=== PATIENT | female | born 1970 | race Caucasian/White ===

== ENCOUNTER 2022-08-11 14:25 | Emergency (ER) | payer OTHER ==
[2022-08-11 14:44] VITALS: TEMP 97.6; BMI 37.8
[2022-08-11] MEDS ORDERED: SODIUM CHLORIDE 1,000 ML IV STA (15:42)
[2022-08-11] MEDS ORDERED: ACETAMINOPHEN 1000 MG/100 ML BAG IVPB ONE (15:43)
[2022-08-11 16:03] LABS: EPI CELLS 31 /uL (0-25.1); HYALINE CASTS 0 /uL (0-3.1); PH,URINE 5.5 (5.0-8.0); URINE APPEARANCE CLEAR; URINE BACTERIA 117 /uL (0-1359); URINE BILIRUBIN NEGATIVE (NEGATIVE); URINE COLOR YELLOW; URINE GLUCOSE (UA) NEGATIVE (NEGATIVE); URINE KETONE NEGATIVE (NEGATIVE); URINE LEUK ESTERASE 1+ (NEGATIVE); URINE NITRITE NEGATIVE (NEGATIVE); URINE PROTEIN NEGATIVE (NEGATIVE); URINE RBC 10 /uL (0-23.9); URINE UROBILINOGEN 0.2 mg/dL (0.2-1.0); URINE WBC 23 /uL (0-25.8)
[2022-08-11] MEDS ORDERED: ACETAMINOPHEN INJECTION 100 ML IVPB ONE (16:03)
[2022-08-11 16:05] LABS: HCG,QUALITATIVE URINE Negative
[2022-08-11 16:08] LABS: BASO % 0.8 % (0-2.0); EOS % 1.7 % (0-4.5); HEMOGLOBIN 13.7 GM/dL (10.7-15.3); LYMPH % 40.6 % (8-40); MCH 27.9 pg (25.7-33.7); MCHC 32.6 g/dl (32.0-36.0); MEAN CELL VOLUME 85.6 fl (80-96); MEAN PLT VOLUME 8.6 fl (7.5-11.1); NEUT % 50.9 % (42.8-82.8); PLATELET COUNT 237 10^3/uL (134-434); RBC 4.91 M/mm3 (3.60-5.2); RDW 14.6 % (11.6-15.6); WHITE BLOOD COUNT 8.4 K/mm3 (4.0-10.0)
[2022-08-11 16:30] LABS: ALBUMIN 3.7 g/dl (3.4-5.0); CALCIUM 9.4 mg/dL (8.5-10.1)
[2022-08-11 16:33] LABS: CREATININE 0.6 mg/dL (0.55-1.3)
[2022-08-11 16:35] LABS: BILIRUBIN,TOTAL 0.2 mg/dL (0.2-1)
[2022-08-11] MEDS ORDERED: oxyCODONE HCL 5 MG TABLET PO ONE ×2 (17:22→23:01)
[2022-08-11] MEDS ORDERED: oxyCODONE HCL 5 MG TABLET ONE ×2 (17:26→23:12)
[2022-08-11] MEDS ORDERED: KETOROLAC TROMETHAMINE 15 MG/ML VIAL IVPUSH ONE (19:47)
[2022-08-11] MEDS ORDERED: KETOROLAC TROMETHAMINE 15 MG/ML VIAL ONE (19:55)
[2022-08-11 20:06] VITALS: BP 129/87; PULSE 81; RESP 20
[2022-08-11] MEDS ORDERED: AMOX TR/POT CLAV 875MG/125MG TABLETS (FP) PO ONE (22:56)
[2022-08-11] MEDS ORDERED: AMOX TR/POT CLAV 875MG/125MG TABLETS (FP) ONE (23:11)
== END 2022-08-11 23:26 | disposition home or self-care (01) ==
LOC: JER 14:25
PROC: 3E0333Z Introduction of Anti-inflammatory into Peripheral Vein, Percutaneous Approach (ICD-10-PCS; principal; 2022-08-11)
PROC: 3E0333Z Introduction of Anti-inflammatory into Peripheral Vein, Percutaneous Approach (ICD-10-PCS; 2022-08-11)
PROC: 3E0337Z Introduction of Electrolytic and Water Balance Substance into Peripheral Vein, Percutaneous Approach (ICD-10-PCS; 2022-08-11)
DX: R10.2 Pelvic and perineal pain (principal); D25.9 Leiomyoma of uterus, unspecified
CPT/HCPCS: 36415; 74177-TC; 76830-TC; 80053; 81003; 83690; 84703; 85025; 87086; 99285-25; Q9967

== ENCOUNTER 2022-11-26 11:06 | Emergency (ER) | payer OTHER ==
[2022-11-26 11:28] VITALS: BP 133/83; PULSE 83; RESP 20; TEMP 98.2; BMI 39.0
[2022-11-26] MEDS ORDERED: KETOROLAC TROMETHAMINE 15 MG/ML VIAL IM ONE (11:56)
[2022-11-26] MEDS ORDERED: METHOCARBAMOL 500 MG TABLET PO ONE (11:56)
[2022-11-26] MEDS ORDERED: KETOROLAC TROMETHAMINE 15 MG/ML VIAL ONE (12:03)
[2022-11-26] MEDS ORDERED: METHOCARBAMOL 500 MG TABLET ONE (12:03)
== END 2022-11-26 15:25 | disposition home or self-care (01) ==
LOC: JER 11:06
PROC: 3E023GC Introduction of Other Therapeutic Substance into Muscle, Percutaneous Approach (ICD-10-PCS; principal; 2022-11-26)
DX: M54.31 Sciatica, right side (principal)
CPT/HCPCS: 72100-TC-FY; 73502-TC-RT-FY; 73562-TC-RT-FY; 73590-TC-RT-FY; 99284-25

== ENCOUNTER 2023-07-20 01:07 | Emergency (ER) | payer OTHER ==
[2023-07-20 01:23] VITALS: BP 157/89; PULSE 98; RESP 18; BMI 43.9
[2023-07-20] MEDS ORDERED: ACETAMINOPHEN 1000 MG/100 ML BAG IVPB ONE (01:38)
[2023-07-20] MEDS ORDERED: MAG HYDROX/AL HYDROX/SIMETH 30 ML UNIT-DOSE CUP PO ONE (01:38)
[2023-07-20] MEDS ORDERED: FAMOTIDINE 20 MG/50 ML IVPB 20 MG/50 ML MG IVPB ONE ×2 (01:38→02:20)
[2023-07-20] MEDS ORDERED: ACETAMINOPHEN INJECTION 100 ML IVPB ONE (02:19)
[2023-07-20 02:20] LABS: BASO % 0.5 % (0-2.0); EOS % 1.7 % (0-4.5); HEMATOCRIT 42.3 % (32.4-45.2); HEMOGLOBIN 13.7 GM/dL (10.7-15.3); LYMPH % 41.7 % (8-40); MCH 27.5 pg (25.7-33.7); MCHC 32.3 g/dl (32.0-36.0); MEAN CELL VOLUME 85.2 fl (80-96); MEAN PLT VOLUME 8.9 fl (7.5-11.1); MONO % 6.5 % (3.8-10.2); NEUT % 49.6 % (42.8-82.8); PLATELET COUNT 300 10^3/uL (134-434); RBC 4.96 M/mm3 (3.60-5.2); WHITE BLOOD COUNT 11.1 K/mm3 (4.0-10.0)
[2023-07-20] MEDS ORDERED: MAG HYDROX/AL HYDROX/SIMETH 30 ML UNIT-DOSE CUP ONE (02:20)
[2023-07-20 02:31] VITALS: TEMP 98.7
[2023-07-20 02:46] LABS: POTASSIUM 4.7 mmol/L (3.5-5.1)
[2023-07-20 02:47] LABS: ALBUMIN 3.7 g/dl (3.4-5.0); CALCIUM 8.8 mg/dL (8.5-10.1)
[2023-07-20 02:50] LABS: CREATININE 0.7 mg/dL (0.55-1.3)
[2023-07-20 02:52] LABS: BILIRUBIN,TOTAL 0.2 mg/dL (0.2-1); TOT PROT 7.3 g/dl (6.4-8.2)
== END 2023-07-20 04:05 | disposition home or self-care (01) ==
LOC: JER 01:07
PROC: 3E033GC Introduction of Other Therapeutic Substance into Peripheral Vein, Percutaneous Approach (ICD-10-PCS; principal; 2023-07-20)
PROC: 3E033GC Introduction of Other Therapeutic Substance into Peripheral Vein, Percutaneous Approach (ICD-10-PCS; 2023-07-20)
DX: R07.9 Chest pain, unspecified (principal); R06.02 Shortness of breath; Z20.822 Contact with and (suspected) exposure to COVID-19
CPT/HCPCS: 0241U-QW; 36415; 71045-TC-FY; 80053; 84484; 85025; 93005; 93010; 99285-25

== ENCOUNTER 2024-07-20 13:14 | Emergency (ER) | payer OTHER ==
[2024-07-20 13:23] VITALS: BP 148/98; PULSE 90; RESP 24; TEMP 97.8; BMI 41.5
[2024-07-20] MEDS ORDERED: predniSONE 20 MG TABLET (UD) ONE (14:16)
[2024-07-20] MEDS ORDERED: predniSONE 10 MG TABLET (UD) ONE (14:16)
[2024-07-20] MEDS ORDERED: ALBUTEROL SO4 2.5/IPRATROPIUM 0.5 INH SOL 3 ML VIAL.NEB. NEB ONE (14:16)
[2024-07-20] MEDS: ALBUTEROL SO4 2.5/IPRATROPIUM 0.5 INH SOL 3 ML VIAL.NEB. NEB ONE ×2 (14:26)
[2024-07-20] MEDS: predniSONE 20 MG TABLET (UD) PO ONE (14:26)
== END 2024-07-20 16:38 | disposition home or self-care (01) ==
LOC: JER 13:14
PROC: 3E0F7GC Introduction of Other Therapeutic Substance into Respiratory Tract, Via Natural or Artificial Opening (ICD-10-PCS; principal; 2024-07-20)
DX: R05.9 Cough, unspecified (principal); J45.909 Unspecified asthma, uncomplicated; R06.02 Shortness of breath; Z20.822 Contact with and (suspected) exposure to COVID-19
CPT/HCPCS: 0241U-QW; 71046-TC-FY; 93005; 93010; 99285-25

== ENCOUNTER 2024-11-26 06:36 | Emergency (ER) | payer OTHER ==
[2024-11-26 06:41] VITALS: BP 139/91; PULSE 94; RESP 24; TEMP 97.9; BMI 39.0
[2024-11-26] MEDS: guaiFENesin 200 MG/10 ML 10 ML UNIT-DOSE CUPS PO ONE (08:25)
[2024-11-26] MEDS ORDERED: guaiFENesin/CODEINE 10 ML UNIT-DOSE CUPS ONE (09:02)
[2024-11-26] MEDS ORDERED: KETOROLAC TROMETHAMINE 15 MG/ML VIAL ONE (09:03)
[2024-11-26] MEDS: KETOROLAC TROMETHAMINE 15 MG/ML VIAL IM ONE (09:13)
[2024-11-26] MEDS: KETOROLAC TROMETHAMINE 30 MG/1 ML VIAL IVPUSH ONE (09:14)
== END 2024-11-26 09:54 | disposition home or self-care (01) ==
LOC: JER 06:36
PROC: 3E0233Z Introduction of Anti-inflammatory into Muscle, Percutaneous Approach (ICD-10-PCS; principal; 2024-11-26)
DX: U07.1 COVID-19 (principal); R05.9 Cough, unspecified; R09.81 Nasal congestion; I10 Essential (primary) hypertension; M79.10 Myalgia, unspecified site
CPT/HCPCS: 0241U-QW; 71046-TC-FY; 99284-25